=== PATIENT | female | born 1990 | race Caucasian/White ===

== ENCOUNTER 2017-04-15 13:37 | Emergency (ER) | payer SELFPAY ==
[2017-04-15] MEDS ORDERED: Sodium Chloride 0.9% 10 ML Syringe FLUSH PRN (13:50)
[2017-04-15] MEDS ORDERED: Lidocaine 2% Jelly 5 ML Tube TOP ONE (13:51)
[2017-04-15] MEDS ORDERED: diphenhydrAMINE 50 MG/ML SDV IVPUSH ONE (13:52)
[2017-04-15] MEDS ORDERED: LORazepam 2 MG/ML SDV IVPUSH ONE (13:53)
--- NOTE | 2017-04-15 14:20 | EDM.PDOC ---
ED HPI GENERAL MEDICAL PROBLEM - General Chief Complaint: Bite:Animal, Insect Stated Complaint: BEE STING Time Seen by Provider: 04/15/17 13:42 Source of Information: Reports: Patient History Limitations: Reports: No Limitations - History of Present Illness INITIAL COMMENTS - FREE TEXT/NARRATIVE: Patient stung by bee just prior to arrival and left upper arm is getting swollen and painful. She is not sure if she has been stung by a bee or has a bee sting allergy. She is concerned because she has asthma Onset: Today, Sudden Onset Date: 04/15/17 Onset Time: 13:00 Duration: Minutes:, Getting Worse Location: Reports: Lower Extremity, Left Quality: Reports: Ache, Burning Severity: Severe Improves with: Reports: None Worsens with: Reports: Cold Therapy (she tried ice pack but it made the burning worse) Context: Reports: Other (insect bite) Associated Symptoms: Reports: Shortness of Breath, Other (anxiety and hyperventilation). 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: Reports: Cold Therapy Left Upper Arm Pain Score (Numeric/FACES): 2 - Related Data Allergies Allergy/AdvReac Type Severity Reaction Status Date / Time Penicillins Allergy Cannot Verified 04/15/17 14:36 Remember pork Allergy Cannot Uncoded 10/22/14 13:29 Remember sea salt Allergy Cannot Uncoded 10/22/14 13:29 Remember Home Meds: Home Meds Ondansetron [Zofran ODT] 8 mg PO Q6H PRN #14 tab.dis 01/21/14 [Rx] Albuterol [Proair HFA] 2 puff INH ASDIRECTED PRN 09/28/14 [History] Pantoprazole [ProTONIX] 40 mg PO DAILY 10/13/14 [History] Sucralfate [Carafate] 1 gm PO Q6HR #60 tab 10/15/14 [Rx] Social & Family History - Tobacco Use Smoking Status *Q: Current Every Day Smoker Years of Tobacco use: 10 Used Tobacco, but Quit: No Month Tobacco Last Used: current every day smoker Second Hand Smoke Exposure: Yes - Alcohol Use Days Per Week of Alcohol Use: 0 - Recreational Drug Use Recreational Drug Use: No - Living Situation & Occupation Living situation: Reports: Single, with Significant Other Occupation: Employed ED ROS GENERAL - Review of Systems Review Of Systems: See Below Constitutional: Reports: No Symptoms HEENT: Reports: No Symptoms Respiratory: Reports: Shortness of Breath Cardiovascular: Reports: No Symptoms Endocrine: Reports: No Symptoms GI/Abdominal: Reports: No Symptoms : Reports: No Symptoms Musculoskeletal: Reports: No Symptoms Skin: Reports: Other (burning pain around bug bite left upper inner forearm) Neurological: Reports: Tremors (assosciated with hyperventilation and anxiety) Psychiatric: Reports: Anxiety, Other (multiple scars and some scabs on body associated with self harm per patient report) Hematologic/Lymphatic: Reports: No Symptoms Immunologic: Reports: No Symptoms ED EXAM, ANIMAL BITE - Physical Exam Exam: See Below Exam Limited By: No Limitations General Appearance: Alert, WD/WN, No Apparent Distress, Anxious (distress due to anxiety, is hyperventilating) Eye Exam: Bilateral Eye: EOMI, Normal Inspection, PERRL Ears: Normal External Exam, Normal Canal, Hearing Grossly Normal, Normal TMs Nose: Normal Inspection, Normal Mucosa, No Blood Throat/Mouth: Normal Inspection, Normal Lips, Normal Teeth, Normal Gums, Normal Oropharynx, Normal Voice, No Airway Compromise Head: Atraumatic, Normocephalic Neck: Normal Inspection, Supple, Non-Tender, Full Range of Motion Respiratory/Chest: No Respiratory Distress, Lungs Clear, Normal Breath Sounds, No Accessory Muscle Use, Chest Non-Tender Cardiovascular: Normal Peripheral Pulses, Regular Rate, Rhythm, No Edema, No Gallop, No JVD, No Murmur, No Rub Peripheral Pulses: 3+: Radial (L), Radial (R) GI/Abdominal: Normal Bowel Sounds, Soft, Non-Tender, No Organomegaly, No Distention, No Abnormal Bruit, No Mass (Female) Exam: Deferred Rectal (Female) Exam: Deferred Back Exam: Normal Inspection, Full Range of Motion, NT Extremities: Normal Inspection, Normal Range of Motion, Non-Tender, Normal Capillary Refill, No Pedal Edema Neurological: Alert, Oriented, CN II-XII Intact, Normal Cognition, Normal Gait, Normal Reflexes, No Motor/Sensory Deficits Psychiatric: Anxious Skin Exam: Warm/Dry, DRY, I, Normal Color (with exception of multiple scars and several scabs scattered on body associated with self harm and an insect bite left upper inner forearm surrounded by about 7.5 cm on redness, warmth, tenderness and rticaria.), NR Lymphadenopathy: Bilateral: No Adenopathy Lymphatic: No Adenopathy Course - Vital Signs Last Recorded V/S: Last Vital Signs Temp 36.8 C 04/15/17 13:45 Pulse 90 04/15/17 15:10 Resp 18 04/15/17 15:10 BP 124/65 04/15/17 15:10 Pulse Ox 98 04/15/17 15:10 - Orders/Labs/Meds Orders: Active Orders 24 hr Category Date Time Status Saline Lock Insert [OM.PC] Routine Oth 04/15/17 13:50 Ordered Meds: Medications Discontinued Medications Generic Name Dose Route Start Last Admin Trade Name Freq PRN Reason Stop Dose Admin Diphenhydramine HCl 50 mg 04/15/17 13:52 04/15/17 14:22 Benadryl IVPUSH 04/15/17 13:53 50 mg ONETIME ONE Administration Ketorolac Tromethamine 15 mg 04/15/17 14:50 04/15/17 14:55 Toradol IVPUSH 04/15/17 14:51 15 mg ONETIME ONE Administration Lidocaine HCl 5 ml 04/15/17 13:51 04/15/17 14:22 Xylocaine 2% Jelly TOP 04/15/17 13:52 1 dose ONETIME ONE Administration Lorazepam 0.5 mg 04/15/17 13:53 04/15/17 14:20 Ativan IVPUSH 04/15/17 13:54 0.5 mg ONETIME ONE Administration Sodium Chloride 10 ml 04/15/17 13:50 Saline Flush FLUSH ASDIRECTED PRN Keep Vein Open - Re-Assessments/Exams Free Text/Narrative Re-Assessment/Exam: 04/15/17 14:25 Patient examined on arrival to ER. Vitals done and oxygen applied due to hyperventilation and anxiety. Saline lock placed and patient given Ativan 0.5 mg and Benadryl 50 mg IV. Lidocaine jelly applied to insect bite. Free Text/Narrative Re-Assessment/Exam: 04/15/17 14:50 Patient re-evaluated at this time. Lungs CTA bilat. Vitals remain stable. Urticarial area around bee bite about 70% smaller, may 3 cm now. Patient still complaining of stinging pain around bite. No longer hyperventilating or tachypnic at this time. Will give toradol 15 mg IV and discharge to home in stable and improved condition. Departure - Departure Time of Disposition: 15:15 Disposition: Home, Self-Care 01 Clinical Impression: Insect bite Qualifiers: Encounter type: initial encounter Qualified Code(s): W57.XXXA - Bitten or stung by nonvenomous insect and other nonvenomous arthropods, initial encounter - Discharge Information Instructions: Insect Bite, [id number] Referrals: Darci Reyes MD [Primary Care Provider] - Forms: ED Department Discharge Additional Instructions: Use Benadryl 25-50 mg every four hours for the next 24 hours to minimize swelling and itching at the sting site. May use ibuprofen or tylenol if needed for pain. Watch for signs of infection and see your primary care provider with any concerns. - My Orders Last 24 Hours: My Active Orders 04/15/17 13:50 Saline Lock Insert [OM.PC] Routine - Assessment/Plan Last 24 Hours: My Active Orders 04/15/17 13:50 Saline Lock Insert [OM.PC] Routine
[2017-04-15] MEDS ORDERED: Ketorolac 15 MG/ML SDV IVPUSH ONE (14:50)
[2017-04-15 15:17] VITALS: BP 124/65
== END 2017-04-15 15:15 | disposition home or self-care (01) ==
LOC: VM.ED 13:37
DX: S50.862A Insect bite (nonvenomous) of left forearm, initial encounter (principal); F17.210 Nicotine dependence, cigarettes, uncomplicated; Z88.0 Allergy status to penicillin; Z91.018 Allergy to other foods; Z79.899 Other long term (current) drug therapy; W57.XXXA Bitten or stung by nonvenomous insect and other nonvenomous arthropods, initial encounter
CPT/HCPCS: 96374; 96375; 99283; J1200; J1885; J2060